=== PATIENT | male | born 1965 | race Two or more races ===

== ENCOUNTER → 2024-12-05 | Outpatient (CLI) | payer BC, SELFPAY ==
--- NOTE | 2024-12-05 08:21 | XR_ITS ---
Examination: PA lateral chest 2 views TECHNIQUE: Upright PA lateral chest 2 views Exam date and time: December 05, 2024 0847 hours Comparison 05/20/2024 INDICATIONS: Diagnosis carcinoma necrosis FINDINGS: Normal heart size No lobar pneumonia or pulmonary edema Mild osteopenia IMPRESSION: No lobar pneumonia identified
== END | disposition home or self-care (01) ==
LOC: CDIM 08:12
PROVIDERS: PCP Family Medicine; Referring Provider Allergy & Immunology; Visit Provider Allergy & Immunology
DX: J18.9 Pneumonia, unspecified organism (principal)
CPT/HCPCS: 71046